=== PATIENT | male | born 1960 | race Caucasian/White ===

== ENCOUNTER 2024-05-28 14:15 | Emergency (ER) | payer MEDICARE ==
[~2024-05-28] VITALS: Ht 165.1 cm; Wt 79.8 kg
[2024-05-28 14:16] VITALS: BP 130/70; TEMP 97.7; O2SAT 98
== END 2024-05-28 17:54 | disposition home or self-care (01) ==
LOC: M ED 14:15
DX: S69.92XA Unspecified injury of left wrist, hand and finger(s), initial encounter (principal); M66.9 Spontaneous rupture of unspecified tendon; X50.0XXA Overexertion from strenuous movement or load, initial encounter; E11.9 Type 2 diabetes mellitus without complications; Y92.009 Unspecified place in unspecified non-institutional (private) residence as the place of occurrence of the external cause; Y93.89 Activity, other specified; Y99.9 Unspecified external cause status; Z88.7 Allergy status to serum and vaccine